=== PATIENT | male | born 1985 | race Caucasian/White ===

== ENCOUNTER → 2021-02-07 | Outpatient (REF) | payer OTHER ==
[2021-02-10 13:07] LABS: Lyme Disease IgG/IgM Antibodie <0.91 ISR (0.00-0.90); Lyme Disease IgM Ab Quantitati <0.80 index (0.00-0.79)
== END ==
LOC: M LAB REF 17:06
PROVIDERS: ATTEND Physician Assistant
DX: Z11.9 Encounter for screening for infectious and parasitic diseases, unspecified (principal)

== ENCOUNTER 2022-07-13 14:32 | Emergency (ER) | payer BC, OTHER ==
[~2022-07-13] VITALS: Ht 167.6 cm; Wt 80.7 kg
[2022-07-13] MEDS ORDERED: DOXY-443 PO (17:40)
[2022-07-13 17:51] VITALS: BP 139/88
== END 2022-07-13 17:53 | disposition home or self-care (01) ==
LOC: M ED 14:32
DX: L05.01 Pilonidal cyst with abscess (principal); Z88.0 Allergy status to penicillin; Z79.2 Long term (current) use of antibiotics